=== PATIENT | male | born 1995 | race American Indian/Alaskan Native ===

== ENCOUNTER 2016-07-14 13:22 | Emergency (ER) | payer SELFPAY ==
[2016-07-14 13:55] VITALS: BP 132/88
== END 2016-07-14 20:32 | disposition left against medical advice (07) ==
LOC: ED 13:22
DX: R51 Headache (principal); Z53.21 Procedure and treatment not carried out due to patient leaving prior to being seen by health care provider

== ENCOUNTER 2018-12-27 19:00 | Emergency (ER) | payer OTHER ==
[2018-12-27 19:24] VITALS: BP 115/72
--- NOTE | 2018-12-27 21:35 | XRay Report ---
PROCEDURE: XR FOOT 3+V LT TECHNIQUE: AP, lateral, and oblique views of the left foot HISTORY: Heater fell on left foot COMPARISONS: None . FINDINGS: There is no evidence for acute fracture or dislocation. No soft tissue swelling or radiopaque foreign bodies are seen. Bony mineralization is normal. Joint spaces are maintained. IMPRESSION: No acute soft tissue or bony abnormality noted. This document is electronically signed by Yokasta Sanchez MD., December 27 2018 09:33:48 PM ET
== END 2018-12-27 21:21 | disposition left against medical advice (07) ==
LOC: ED 19:00
DX: M79.672 Pain in left foot (principal); Z53.21 Procedure and treatment not carried out due to patient leaving prior to being seen by health care provider